=== PATIENT | female | born 1955 | race Two or more races ===

== ENCOUNTER 2019-04-23 08:41 | Inpatient (IN) | payer SELFPAY ==
--- NOTE | 2019-04-23 09:11 | ER Document Report ---
ED General - General Chief Complaint: Altered Mental Status Stated Complaint: HEADACHE Time Seen by Provider: 04/23/19 08:56 Notes: Patient is a 63-year-old female with hypertension, diabetes that presents to the emergency department for chief complaint of headache. Patient's apparently been having a headache for about a week now, got progressively worse last night, she was taking Tylenol and Excedrin, was up late to around 3 AM, and this morning she was crying because her headache got worse, she describes it as all over, she had a few episodes of nausea and vomiting, and overall felt weak. She is been noncompliant with her diabetic medications and her antihypertensive medications since coming into town, she is apparently visiting from out of town. She denies having any chest pain, shortness of breath, difficulty breathing, abdominal pain, dysuria hematuria. According to her daughter she seemed to be a little bit confused this morning as well, she is currently alert and oriented x4 however. Past Medical History: Diabetes, hypertension, rheumatoid arthritis, psoriatic arthritis, migraine headaches Past Surgical History: Denies recent or pertinent surgical history Social History: Denies tobacco, alcohol or drug use. Family History: Reviewed and noncontributory for presenting illness Allergies: Reviewed, see documented allergy list. REVIEW OF SYSTEMS: Other than noted above, the 12 point review of systems was reviewed with the patient and were negative, all pertinent findings are included in the HPI. PHYSICAL EXAMINATION: Vital signs reviewed, nursing noted reviewed. GENERAL: Obese female, no acute distress, appears uncomfortable on exam however. HEAD: Atraumatic, normocephalic. EYES: Eyes appear normal, extraocular movements intact, sclera anicteric, conjunctiva are normal. ENT: nares patent, oropharynx clear without exudates. Moist mucous membranes. NECK: Normal range of motion, supple without lymphadenopathy, no neck stiffness, negative Kernig's and Brudzinski signs. LUNGS: Breath sounds clear to auscultation bilaterally and equal. No wheezes rales or rhonchi. HEART: Regular rate and rhythm without murmurs ABDOMEN: Soft, nontender, normoactive bowel sounds. No rebound, guarding, or ri gidity. No masses appreciated. EXTREMITIES: Bilateral lower extremity pitting edema, equal, 2+, normal range of motion and nontender. NEUROLOGICAL: Alert and oriented x4. No focal neurological deficits. Moves all extremities spontaneously Motor and sensory grossly intact on exam. PSYCH: Appears uncomfortable, answering questions appropriately however. SKIN: Warm, Dry, normal turgor, no rashes or lesions noted on exposed skin TRAVEL OUTSIDE OF THE [place] IN LAST 30 DAYS: No - Related Data Allergies/Adverse Reactions: No Known Allergies Allergy (Verified 04/23/19 08:41) Past Medical History - Social History Smoking Status: Never Smoker Family History: Reviewed & Not Pertinent Physical Exam - Vital signs Vitals: Pulse Ox 100 04/23/19 08:53 Course - Re-evaluation Re-evalutation: Patient seen and examined vital signs reviewed. Laboratory data and imaging were ordered as appropriate for the patient's presenting symptoms and complaint, with consideration of any critical or life threatening conditions that may be associated with their obtained history and exam as noted above. Patient was treated with IV nicardipine, Reglan, and magnesium. Results were reviewed when available and demonstrated hyperglycemia, without acidosis or anion gap, patient was treated with 10 units of IV insulin, she continued to be hypertensive, was increased on the nicardipine, and given a dose of IV metoprolol. Due to the headache, being greater onset than 6 hours, CT was negative, pursued lumbar puncture, which was a traumatic tap, but the red blood cells diluted out in the fourth tube, effectively ruling out subarachnoid hemorrhage. The patient was re-evaluated and was stable, headache was improving, but I did give her a dose of IV morphine to see if it would help more. Evaluation was most consistent with hypertensive encephalopathy, hypertensive emergency, patient was having confusion at home and headache, and markedly elevated blood pressure, requiring IV antihypertensives, I do feel the patient needs to be admitted at this time. Results were discussed with the patient at this point after careful consideration I feel that that patient should be admitted to the hospital. This was discussed with the patient that it is in the best interest for their care to be admitted for further evaluation and management. Patient agreed with this plan of care. A call was placed to the admitting physician, Dr. Crandall and [facility] Villalob[facility], who graciously accepted the patient onto their service. *Note is created using voice recognition software and may contain spelling, synt ax or grammatical errors. Microbiology 04/23/19 11:59 Gram Stain - Preliminary Cerebral Spinal Fluid - Csf Laboratory 07/04/23/19 04/23/19 09:15 09:25 09:25 WBC 9.0 RBC 5.64 H Hgb 16.5 H Hct 50.6 H MCV 90 MCH 29.2 MCHC 32.6 RDW 15.2 H Plt Count 136 L Seg Neutrophils % 89.5 H Lymphocytes % 6.7 L Monocytes % 2.7 L Eosinophils % 0.1 Basophils % 1.0 Absolute Neutrophils 8.0 Absolute Lymphocytes 0.6 Absolute Monocytes 0.2 Absolute Eosinophils 0.0 Absolute Basophils 0.1 PT 12.3 INR 0.91 VBG pH VBG pCO2 VBG HCO3 VBG Base Excess Sodium Potassium Chloride Carbon Dioxide Anion Gap BUN Creatinine Est GFR ( Amer) Est GFR (Non-Af Amer) Glucose Lactic Acid Calcium Total Bilirubin Direct Bilirubin Neonat Total Bilirubin Neonat Direct Bilirubin Neonat Indirect Bili AST ALT Alkaline Phosphatase Troponin I Total Protein Albumin Urine Color YELLOW Urine Appearance SLIGHTLY-CLOUDY Urine pH 8.0 Ur Specific Douglas 1.025 Urine Protein >=500 H Urine Glucose (UA) >=500 H Urine Ketones 20 H Urine Blood SMALL H Urine Nitrite NEGATIVE Urine Bilirubin NEGATIVE Urine Urobilinogen NEGATIVE Ur Leukocyte Esterase TRACE H Urine WBC (Auto) 23 Urine RBC (Auto) 17 Urine Bacteria (Auto) TRACE Squamous Epi Cells Auto 7 U Non-Squamous Epis Auto 3 Urine Mucus (Auto) RARE Urine Ascorbic Acid NEGATIVE Fluid Tube Number CSF Volume CSF WBC CSF RBC CSF Color (1) CSF Appearance (1) CSF Color (2) CSF Appearance (2) CSF Color (3) CSF Appearance (3) CSF Color (4) CSF Appearance (4) CSF Glucose CSF Total Protein 04/23/19 04/23/19 04/23/19 09:25 09:25 10:09 WBC RBC Hgb Hct MCV MCH MCHC RDW Plt Count Seg Neutrophils % Lymphocytes % Monocytes % Eosinophils % Basophils % Absolute Neutrophils Absolute Lymphocytes Absolute Monocytes Absolute Eosinophils Absolute Basophils PT INR VBG pH VBG pCO2 VBG HCO3 VBG Base Excess Sodium 137.3 Potassium 3.4 L Chloride 96 L Carbon Dioxide 28 Anion Gap 13 BUN 16 Creatinine 0.81 Est GFR ( Amer) > 60 Est GFR (Non-Af Amer) > 60 Glucose 502 H* Lactic Acid 1.2 Calcium 9.3 Total Bilirubin 1.1 Direct Bilirubin 0.4 Neonat Total Bilirubin Not Reportable Neonat Direct Bilirubin Not Reportable Neonat Indirect Bili Not Reportable AST 24 ALT 17 Alkaline Phosphatase 111 Troponin I < 0.012 Total Protein 7.9 Albumin 4.1 Urine Color Urine Appearance Urine pH Ur Specific Douglas Urine Protein Urine Glucose (UA) Urine Ketones Urine Blood Urine Nitrite Urine Bilirubin Urine Urobilinogen Ur Leukocyte Esterase Urine WBC (Auto) Urine RBC (Auto) Urine Bacteria (Auto) Squamous Epi Cells Auto U Non-Squamous Epis Auto Urine Mucus (Auto) Urine Ascorbic Acid Fluid Tube Number CSF Volume CSF WBC CSF RBC CSF Color (1) CSF Appearance (1) CSF Color (2) CSF Appearance (2) CSF Color (3) CSF Appearance (3) CSF Color (4) CSF Appearance (4) CSF Glucose CSF Total Protein 04/23/19 04/23/19 04/23/19 10:09 11:59 11:59 WBC RBC Hgb Hct MCV MCH MCHC RDW Plt Count Seg Neutrophils % Lymphocytes % Monocytes % Eosinophils % Basophils % Absolute Neutrophils Absolute Lymphocytes Absolute Monocytes Absolute Eosinophils Absolute Basophils PT INR VBG pH 7.33 VBG pCO2 55.0 VBG HCO3 28.2 VBG Base Excess 0.6 Sodium Potassium Chloride Carbon Dioxide Anion Gap BUN Creatinine Est GFR ( Amer) Est GFR (Non-Af Amer) Glucose Lactic Acid Calcium Total Bilirubin Direct Bilirubin Neonat Total Bilirubin Neonat Direct Bilirubin Neonat Indirect Bili AST ALT Alkaline Phosphatase Troponin I Total Protein Albumin Urine Color Urine Appearance Urine pH Ur Specific Douglas Urine Protein Urine Glucose (UA) Urine Ketones Urine Blood Urine Nitrite Urine Bilirubin Urine Urobilinogen Ur Leukocyte Esterase Urine WBC (Auto) Urine RBC (Auto) Urine Bacteria (Auto) Squamous Epi Cells Auto U Non-Squamous Epis Auto Urine Mucus (Auto) Urine Ascorbic Acid Fluid Tube Number 1 4 CSF Volume 3.8 3.8 CSF WBC 4 0 CSF RBC 2685 H 293 CSF Color (1) PINK PINK CSF Appearance (1) HAZY HAZY CSF Color (2) PINK PINK CSF Appearance (2) CLEAR CLEAR CSF Color (3) COLORLESS COLORLESS CSF Appearance (3) CLEAR CLEAR CSF Color (4) COLORLESS COLORLESS CSF Appearance (4) CLEAR CLEAR CSF Glucose CSF Total Protein 04/23/19 11:59 WBC RBC Hgb Hct MCV MCH MCHC RDW Plt Count Seg Neutrophils % Lymphocytes % Monocytes % Eosinophils % Basophils % Absolute Neutrophils Absolute Lymphocytes Absolute Monocytes Absolute Eosinophils Absolute Basophils PT INR VBG pH VBG pCO2 VBG HCO3 VBG Base Excess Sodium Potassium Chloride Carbon Dioxide Anion Gap BUN Creatinine Est GFR ( Amer) Est GFR (Non-Af Amer) Glucose Lactic Acid Calcium Total Bilirubin Direct Bilirubin Neonat Total Bilirubin Neonat Direct Bilirubin Neonat Indirect Bili AST ALT Alkaline Phosphatase Troponin I Total Protein Albumin Urine Color Urine Appearance Urine pH Ur Specific Douglas Urine Protein Urine Glucose (UA) Urine Ketones Urine Blood Urine Nitrite Urine Bilirubin Urine Urobilinogen Ur Leukocyte Esterase Urine WBC (Auto) Urine RBC (Auto) Urine Bacteria (Auto) Squamous Epi Cells Auto U Non-Squamous Epis Auto Urine Mucus (Auto) Urine Ascorbic Acid Fluid Tube Number CSF Volume CSF WBC CSF RBC CSF Color (1) CSF Appearance (1) CSF Color (2) CSF Appearance (2) CSF Color (3) CSF Appearance (3) CSF Color (4) CSF Appearance (4) CSF Glucose 237 H CSF Total Protein 113 H Chest X-Ray 04/23/19 08:58 IMPRESSION: NO SIGNIFICANT RADIOGRAPHIC FINDING IN THE CHEST. Head CT 04/23/19 08:59 IMPRESSION: NORMAL BRAIN CT WITHOUT CONTRAST. EVIDENCE OF ACUTE STROKE: NO. - Vital Signs Vital signs: Temp Pulse Resp BP Pulse Ox 22 H 202/75 H 88 L 04/23/19 13:06 04/23/19 13:06 04/23/19 13:06 - Laboratory Result Diagrams: 04/23/19 09:25 04/23/19 09:25 Laboratory results interpreted by me: 04/23/19 04/23/19 04/23/19 09:15 09:25 09:25 RBC 5.64 H Hgb 16.5 H Hct 50.6 H RDW 15.2 H Plt Count 136 L Seg Neutrophils % 89.5 H Lymphocytes % 6.7 L Monocytes % 2.7 L Potassium 3.4 L Chloride 96 L Glucose 502 H* Urine Protein >=500 H Urine Glucose (UA) >=500 H Urine Ketones 20 H Urine Blood SMALL H Ur Leukocyte Esterase TRACE H CSF RBC CSF Glucose CSF Total Protein 04/23/19 04/23/19 11:59 11:59 RBC Hgb Hct RDW Plt Count Seg Neutrophils % Lymphocytes % Monocytes % Potassium Chloride Glucose Urine Protein Urine Glucose (UA) Urine Ketones Urine Blood Ur Leukocyte Esterase CSF RBC 2685 H CSF Glucose 237 H CSF Total Protein 113 H - EKG Interpretation by Me Additional EKG results interpreted by me: EKG demonstrates sinus rhythm with a ventricular rate of 92 bpm, normal axis, QTC interpreted as prolonged, at 525 ms, however there is significant baseline artifact, which I believe is artificially elevating the QTC, with manual calculation, her QTC is [address] elevation noted, no prior for comparison. Procedures - Lumbar Puncture Lumbar puncture Consent obtained: Yes Lumbar puncture pre-procedure: Sterile PPE donned, Betadine prep applied, Sterile drapes applied Patient position: Lying - Left Lateral Decubitus Needle size: 22 Lumbar puncture location: L4 Anesthetic type: 1% Lidocaine mL's of anesthetic: 3 Amount/type of drainage: 3.5mL Number of attempts: 2 Complications: No Notes: Suspected traumatic tap, small amount of blood initially, and appeared to dilute out. Critical Care Note - Critical Care Note Total time excluding time spent on procedures (mins): 45 Comments: Critical care time 45 minutes exclusive from separate billable procedures for a patient requiring complex medical decision making, and high potential for cl inical deterioration. In a patient with hypertensive encephalopathy requiring IV antihypertensive medication, close monitoring and repeat evaluations. Time spent obtaining history from patient or surrogate, discussions with consultants, development of treatment plan with patient or surrogate, evaluation of patient's response to treatment, examination of patient, ordering and performing treatments and interventions, ordering and review of laboratory studies, re- evaluation of patient's condition, ordering and review of radiographic studies and review of old charts Discharge - Discharge Clinical Impression: Hypertensive encephalopathy, Hypertensive emergency, Hyperglycemia, Hypokalemia Condition: Serious Disposition: ADMITTED INPATIENT Admitting Provider: Raz (Hospitalist) - Fortunato Villalobos [facility] Unit Admitted: [facility]
[2019-04-23] MEDS ORDERED: NICARDIPINE HCL RTU, ISO-OS 20 MG/200 ML RTUINJ IV PRN (09:24)
--- NOTE | 2019-04-23 09:24 | RADIOLOGY REPORT (SQ) ---
EXAM DESCRIPTION: CT HEAD WITHOUT COMPLETED DATE/TIME: 04/23/2019 9:16 am REASON FOR STUDY: headache, confusion COMPARISON: None. TECHNIQUE: Axial images acquired through the brain without intravenous contrast. Images reviewed wi th bone, brain and subdural windows. Additional sagittal and coronal reconstructions were generated. Images stored on PACS. All CT scanners at this facility use dose modulation, iterative reconstruction, and/or weight based d osing when appropriate to reduce radiation dose to as low as reasonably achievable (ALARA). [facility]: Dose Right [facility]: CareDose [facility]: Dose Right [facility]: Teradose 4D [facility]: Smart [employer] RADIATION DOSE: CT Rad equipment meets quality standard of care and radiation dose reduction techniq ues were employed. CTDIvol: 53.2 mGy. DLP: 911 mGy-cm. mGy. LIMITATIONS: None. FINDINGS: VENTRICLES: Normal size and contour. CEREBRUM: No masses. No hemorrhage. No midline shift. No evidence for acute infarction. Normal gra y/white matter differentiation. No areas of low density in the white matter. CEREBELLUM: No masses. No hemorrhage. No alteration of density. No evidence for acute infarction. EXTRAAXIAL SPACES: No fluid collections. No masses. ORBITS AND GLOBE: No intra- or extraconal masses. Normal contour of globe without masses. CALVARIUM: No fracture. PARANASAL SINUSES: No fluid or mucosal thickening. SOFT TISSUES: No mass or hematoma. OTHER: No other significant finding. IMPRESSION: NORMAL BRAIN CT WITHOUT CONTRAST. EVIDENCE OF ACUTE STROKE: NO. COMMENT: Quality ID # [id number]: Final reports with documentation of one or more dose reduction techniques (e.g., Automated exposure control, adjustment of the mA and/or kV according to patient size, use of iterative reconstruction technique) TECHNICAL DOCUMENTATION: JOB ID: [id number] [employer]- All Rights Reserved Reading location - IP/workstation name: [email or web address]
[2019-04-23] MEDS ORDERED: METOCLOPRAMIDE HCL INJ/PF 10 MG/2 ML SDV IV ONE (09:25)
[2019-04-23 09:52] LABS: ABSOLUTE BASOPHILS # (AUTO) 0.1 10^3/uL (0.0-0.2); ABSOLUTE LYMPHOCYTES (AUTO) 0.6 10^3/uL (0.5-4.7); ABSOLUTE MONOCYTES (AUTO) 0.2 10^3/uL (0.1-1.4); EOSINOPHILS % (AUTO) 0.1 % (0-6); HEMATOCRIT 50.6 % (36.0-47.0); HEMOGLOBIN 16.5 g/dL (12.0-15.5); LYMPHOCYTES % (AUTO) 6.7 % (13-45); MEAN CORPUSCULAR HEMOGLOBIN 29.2 pg (27.0-33.4); MEAN CORPUSCULAR HGB CONC 32.6 g/dL (32.0-36.0); MEAN CORPUSCULAR VOLUME 90 fl (80-97); MONOCYTES % (AUTO) 2.7 % (3-13); PLATELET COUNT 136 10^3/uL (150-450); RED BLOOD COUNT 5.64 10^6/uL (3.72-5.28); RED CELL DISTRIBUTION WIDTH 15.2 % (11.5-14.0); SEGMENTED NEUTROPHILS % (AUTO) 89.5 % (42-78); TOTAL CELLS COUNTED % (AUTO) 100 %
[2019-04-23 09:55] LABS: APPEARANCE,URINE SLIGHTLY-CLOUDY; BILIRUBIN,URINE NEGATIVE (NEGATIVE); COLOR,URINE YELLOW; GLUCOSE, URINE >=500 mg/dL (NEGATIVE); KETONES,URINE 20 mg/dL (NEGATIVE); LEUKOCYTE ESTERASE,URINE TRACE (NEGATIVE); NITRITE,URINE NEGATIVE (NEGATIVE); PROTEIN,URINE >=500 mg/dL (NEGATIVE); URINE SPECIFIC GRAVITY 1.025; UROBILINOGEN,URINE NEGATIVE mg/dL (<2.0)
--- NOTE | 2019-04-23 09:57 | RADIOLOGY REPORT (SQ) ---
EXAM DESCRIPTION: CHEST SINGLE VIEW COMPLETED DATE/TIME: 04/23/2019 9:14 am REASON FOR STUDY: confusion COMPARISON: None. NUMBER OF VIEWS: One view. TECHNIQUE: Single frontal radiographic view of the chest acquired. LIMITATIONS: None. FINDINGS: LUNGS AND PLEURA: No opacities, masses or pneumothorax. No pleural effusion. MEDIASTINUM AND HILAR STRUCTURES: No masses. Contour normal. HEART AND VASCULAR STRUCTURES: Heart normal in size. Normal vasculature. BONES: No acute findings. HARDWARE: None in the chest. OTHER: No other significant finding. IMPRESSION: NO SIGNIFICANT RADIOGRAPHIC FINDING IN THE CHEST. TECHNICAL DOCUMENTATION: JOB ID: [id number] [employer]- All Rights Reserved Reading location - IP/workstation name: [email or web address]
[2019-04-23 09:59] LABS: INTERNATIONAL RATION (INR) 0.91; PROTHROMBIN TIME 12.3 SEC (11.4-15.4)
[2019-04-23 10:08] LABS: ALANINE AMINOTRANSFERASE 17 U/L (9-52); ALBUMIN 4.1 g/dL (3.5-5.0); ALKALINE PHOSPHATASE 111 U/L (38-126); ANION GAP 13 (5-19); ASPARTATE AMINO TRANSFERASE 24 U/L (14-36); BILIRUBIN,DIRECT 0.4 mg/dL (0.0-0.4); BILIRUBIN,TOTAL 1.1 mg/dL (0.2-1.3); BLOOD UREA NITROGEN 16 mg/dL (7-20); CALCIUM 9.3 mg/dL (8.4-10.2); CARBON DIOXIDE 28 mmol/L (22-30); CHLORIDE 96 mmol/L (98-107); POTASSIUM 3.4 mmol/L (3.6-5.0); SODIUM 137.3 mmol/L (137-145); TOTAL PROTEIN 7.9 g/dL (6.3-8.2)
[2019-04-23 10:15] LABS: GLUCOSE 502 mg/dL (75-110)
[2019-04-23] MEDS ORDERED: INSULIN REG, HUMAN 100 UNIT/ML 3 ML VIAL (PYX) IV ONE (10:20)
[2019-04-23 10:26] LABS: VENOUS BLOOD BASE EXCESS 0.6 mmol/L; VENOUS BLOOD HCO3 28.2 mmol/L (20-32); VENOUS BLOOD PH 7.33 (7.30-7.42)
[2019-04-23] MEDS ORDERED: POTASSIUM CHLORIDE 10 MEQ CAPSULE.ER PO ONE ×2 (10:36→14:06)
[2019-04-23] MEDS ORDERED: MAGNESIUM SULFATE/D5W 1 GM/100 ML RTUPB IV ONE (10:39)
[2019-04-23] MEDS ORDERED: LIDOCAINE 1% INJ-PF (10 MG/ML) 30 ML SDV INJ ONE (11:16)
[2019-04-23] MEDS ORDERED: MORPHINE SULFATE 10 MG/ML INJ IV ONE (11:16)
[2019-04-23 12:35] LABS: GLUCOSE,CSF 237 mg/dL (40-70); PROTEIN,CSF 113 mg/dL (12-60)
[2019-04-23] MEDS ORDERED: METOPROLOL TARTRATE PF/INJ 5 MG/5 ML SDV IV ONE (12:49)
[2019-04-23 12:59] LABS: COLOR TUBE 1 PINK; COLOR TUBE 2 PINK; COLOR TUBE 3 COLORLESS; CSF TUBE NUMBER 1
[2019-04-23 13:00] LABS: APPEARANCE TUBE 1 HAZY; APPEARANCE TUBE 2 CLEAR; APPEARANCE TUBE 3 CLEAR; APPEARANCE TUBE 4 CLEAR; COLOR TUBE 4 COLORLESS; CSF TOTAL VOLUME 3.8 CC; RED BLOOD CELL,CSF 2685 /uL (0-10); VOLUME TUBE 4 0.8 CC
[2019-04-23 13:01] LABS: WHITE BLOOD CELL,CSF 4 /uL (0-5)
[2019-04-23 13:17] LABS: APPEARANCE TUBE 1 HAZY; APPEARANCE TUBE 2 CLEAR; APPEARANCE TUBE 3 CLEAR; COLOR TUBE 1 PINK; COLOR TUBE 2 PINK; COLOR TUBE 3 COLORLESS; COLOR TUBE 4 COLORLESS; CSF TUBE NUMBER 4
[2019-04-23 13:18] LABS: APPEARANCE TUBE 4 CLEAR; CSF TOTAL VOLUME 3.8 CC; RED BLOOD CELL,CSF 293 /uL (0-10); VOLUME TUBE 4 0.8 CC
[2019-04-23 13:19] LABS: WHITE BLOOD CELL,CSF 0 /uL (0-5)
[2019-04-23] MEDS ORDERED: DEXTROSE 5%-WATER 250 ML with NITROPRUSSIDE SODIUM 50 MG IV PRN ×2 (13:55)
[2019-04-23] MEDS ORDERED: MAGNESIUM HYDROXIDE SUSP 30 ML UDCUP PO PRN (13:56)
[2019-04-23] MEDS ORDERED: ONDANSETRON HCL INJ/PF 4 MG/2 ML SDV IV PRN (13:56)
[2019-04-23] MEDS ORDERED: GLUCAGON,HUMAN RECOMB 1 MG INJ SUBCUT PRN (13:56)
[2019-04-23] MEDS ORDERED: DEXTROSE 40% GEL 15 GM TUBE PO PRN ×4 (13:56→14:07)
[2019-04-23] MEDS ORDERED: DEXTROSE 50%-WATER 25 GM/50 ML DISP.SYRIN IV PRN ×4 (13:56→14:07)
[2019-04-23] MEDS ORDERED: GLUCAGON,HUMAN RECOMB 1 MG INJ IM PRN (14:07)
--- NOTE | 2019-04-23 14:13 | Progress Note Acknowledgement ---
Progress Note Acknowledgement Progess Note Acknowledgement: I, the undersigned member of the medical staff with appropriate privileges and with supervisory authority over Fortunato Villalobos, a [facility] allied health professional, acknowledge that I have reviewed the progress notes entered on this patient, and in my professional judgment believe that the assessment made and/or any care evidenced was appropriate
--- NOTE | 2019-04-23 14:23 | PDOC H&P ---
History of Present Illness Admission Date/PCP: 04/23/19 13:50 No primary care Patient complains of: Headache, hypertension History of Present Illness: LIZBETH PATTERSON is a 63 year old female who presents to the ER today with hypertensive crisis hyperglycemia and headache. Patient [place] has been out of her blood pressure medicine for several weeks. Yesterday patient started experiencing severe headaches and presented to the ER today. Patient was found to have a blood pressure with a systolic of 202, a glucose of greater than 500 and a severe headache for which she went on a lumbar puncture. Lumbar puncture was normal. Patient was placed on Cardene initially for blood pressure control, and patient was given 10 units of IV regular insulin. She had no other treatment prior to arrival no true aggravating factors. Past Medical History Cardiac Medical History: Reports: Hypertension Endocrine Medical History: Reports: Diabetes Mellitus Type 2 Past Surgical History Past Surgical History: Reports: None Social History Information Source: Patient Lives with: Family Smoking Status: Never Smoker Frequency of Alcohol Use: None Hx Recreational Drug Use: No Hx Prescription Drug Abuse: No - Advance Directive Resuscitation Status: Full Code Family History Family History: DM, Hypertension Parental Family History Reviewed: Yes Children Family History Reviewed: Yes Sibling(s) Family History Reviewed.: Yes Medication/Allergy Allergies/Adverse Reactions: No Known Allergies Allergy (Verified 04/23/19 08:41) Review of Systems Constitutional: PRESENT: headache(s). ABSENT: chills, fever(s), weight gain, weight loss Eyes: ABSENT: visual disturbances Ears: ABSENT: hearing changes Cardiovascular: ABSENT: chest pain, dyspnea on exertion, edema, orthropnea, palpitations Respiratory: ABSENT: cough, hemoptysis Gastrointestinal: ABSENT: abdominal pain, constipation, diarrhea, hematemesis, hematochezia, nausea, vomiting Genitourinary: ABSENT: dysuria, hematuria Musculoskeletal: ABSENT: joint swelling Integumentary: ABSENT: rash, wounds Neurological: ABSENT: abnormal gait, abnormal speech, confusion, dizziness, focal weakness, syncope Psychiatric: ABSENT: anxiety, depression, homidical ideation, suicidal ideation Endocrine: ABSENT: cold intolerance, heat intolerance, polydipsia, polyuria Hematologic/Lymphatic: ABSENT: easy bleeding, easy bruising Physical Exam Vital Signs: Temp Pulse Resp BP Pulse Ox 22 H 202/75 H 88 L 04/23/19 13:06 04/23/19 13:06 04/23/19 13:06 Intake & Output 04/22/19 04/23/19 04/24/19 06:59 06:59 06:59 Intake Total 251 Balance 251 Weight 84.2 kg General appearance: PRESENT: no acute distress, well-developed, well-nourished Head exam: PRESENT: atraumatic, normocephalic Eye exam: PRESENT: conjunctiva pink, EOMI, PERRLA. ABSENT: scleral icterus Neck exam: ABSENT: carotid bruit, JVD, lymphadenopathy, thyromegaly Respiratory exam: PRESENT: clear to auscultation shay. ABSENT: rales, rhonchi, wheezes Cardiovascular exam: PRESENT: RRR. ABSENT: diastolic murmur, rubs, systolic murmur Pulses: PRESENT: normal dorsalis pedis pul Vascular exam: PRESENT: normal capillary refill GI/Abdominal exam: PRESENT: normal bowel sounds, soft. ABSENT: distended, guarding, mass, organolmegaly, rebound, tenderness Rectal exam: PRESENT: deferred Gentrourinary exam: PRESENT: indwelling catheter Extremities exam: PRESENT: full ROM. ABSENT: calf tenderness, clubbing, pedal edema Musculoskeletal exam: PRESENT: full ROM Neurological exam: PRESENT: alert, awake, oriented to person, oriented to place, oriented to time, oriented to situation, CN II-XII grossly intact. ABSENT: motor sensory deficit Psychiatric exam: PRESENT: appropriate affect, normal mood. ABSENT: homicidal ideation, suicidal ideation Skin exam: PRESENT: dry, intact, warm. ABSENT: cyanosis, rash Results Laboratory Results: 04/23/19 09:25 04/23/19 09:25 04/23/19 04/23/19 04/23/19 09:15 09:25 09:25 WBC 9.0 RBC 5.64 H Hgb 16.5 H Hct 50.6 H MCV 90 MCH 29.2 MCHC 32.6 RDW 15.2 H Plt Count 136 L Seg Neutrophils % 89.5 H Lymphocytes % 6.7 L Monocytes % 2.7 L Eosinophils % 0.1 Basophils % 1.0 Absolute Neutrophils 8.0 Absolute Lymphocytes 0.6 Absolute Monocytes 0.2 Absolute Eosinophils 0.0 Absolute Basophils 0.1 VBG pH VBG pCO2 VBG HCO3 VBG Base Excess Sodium 137.3 Potassium 3.4 L Chloride 96 L Carbon Dioxide 28 Anion Gap 13 BUN 16 Creatinine 0.81 Est GFR ( Amer) > 60 Est GFR (Non-Af Amer) > 60 Glucose 502 H* Lactic Acid Calcium 9.3 Total Bilirubin 1.1 AST 24 ALT 17 Alkaline Phosphatase 111 Total Protein 7.9 Albumin 4.1 Urine Color YELLOW Urine Appearance SLIGHTLY-CLOUDY Urine pH 8.0 Ur Specific [place] 1.025 Urine Protein >=500 H Urine Glucose (UA) >=500 H Urine Ketones 20 H Urine Blood SMALL H Urine Nitrite NEGATIVE Ur Leukocyte Esterase TRACE H Urine WBC (Auto) 23 Urine RBC (Auto) 17 Fluid Tube Number CSF Volume CSF WBC CSF RBC CSF Color (1) CSF Appearance (1) CSF Color (2) CSF Appearance (2) CSF Color (3) CSF Appearance (3) CSF Color (4) CSF Appearance (4) CSF Glucose CSF Total Protein 04/23/19 04/23/19 04/23/19 10:09 10:09 11:59 WBC RBC Hgb Hct MCV MCH MCHC RDW Plt Count Seg Neutrophils % Lymphocytes % Monocytes % Eosinophils % Basophils % Absolute Neutrophils Absolute Lymphocytes Absolute Monocytes Absolute Eosinophils Absolute Basophils VBG pH 7.33 VBG pCO2 55.0 VBG HCO3 28.2 VBG Base Excess 0.6 Sodium Potassium Chloride Carbon Dioxide Anion Gap BUN Creatinine Est GFR ( Amer) Est GFR (Non-Af Amer) Glucose Lactic Acid 1.2 Calcium Total Bilirubin AST ALT Alkaline Phosphatase Total Protein Albumin Urine Color Urine Appearance Urine pH Ur Specific [place] Urine Protein Urine Glucose (UA) Urine Ketones Urine Blood Urine Nitrite Ur Leukocyte Esterase Urine WBC (Auto) Urine RBC (Auto) Fluid Tube Number 1 CSF Volume 3.8 CSF WBC 4 CSF RBC 2685 H CSF Color (1) PINK CSF Appearance (1) HAZY CSF Color (2) PINK CSF Appearance (2) CLEAR CSF Color (3) COLORLESS CSF Appearance (3) CLEAR CSF Color (4) COLORLESS CSF Appearance (4) CLEAR CSF Glucose CSF Total Protein 04/23/19 04/23/19 11:59 11:59 WBC RBC Hgb Hct MCV MCH MCHC RDW Plt Count Seg Neutrophils % Lymphocytes % Monocytes % Eosinophils % Basophils % Absolute Neutrophils Absolute Lymphocytes Absolute Monocytes Absolute Eosinophils Absolute Basophils VBG pH VBG pCO2 VBG HCO3 VBG Base Excess Sodium Potassium Chloride Carbon Dioxide Anion Gap BUN Creatinine Est GFR ( Amer) Est GFR (Non-Af Amer) Glucose Lactic Acid Calcium Total Bilirubin AST ALT Alkaline Phosphatase Total Protein Albumin Urine Color Urine Appearance Urine pH Ur Specific [place] Urine Protein Urine Glucose (UA) Urine Ketones Urine Blood Urine Nitrite Ur Leukocyte Esterase Urine WBC (Auto) Urine RBC (Auto) Fluid Tube Number 4 CSF Volume 3.8 CSF WBC 0 CSF RBC 293 CSF Color (1) PINK CSF Appearance (1) HAZY CSF Color (2) PINK CSF Appearance (2) CLEAR CSF Color (3) COLORLESS CSF Appearance (3) CLEAR CSF Color (4) COLORLESS CSF Appearance (4) CLEAR CSF Glucose 237 H CSF Total Protein 113 H 04/23/19 09:25 Troponin I < 0.012 Impressions: Chest X-Ray 04/23/19 08:58 IMPRESSION: NO SIGNIFICANT RADIOGRAPHIC FINDING IN THE CHEST. Head CT 04/23/19 08:59 IMPRESSION: NORMAL BRAIN CT WITHOUT CONTRAST. EVIDENCE OF ACUTE STROKE: NO. Assessment and Plan - Diagnosis (1) Hypertensive emergency Is this a current diagnosis for this admission?: Yes Plan: 04/23/2019-admit to ICU. Nitroprusside drip titration to keep systolic pressure below 160. Will start patient back on her home medications. (2) Hypokalemia Is this a current diagnosis for this admission?: Yes Plan: 2018-20 mEq of p.o. KCl times 1 repeat CMP in a.m. (3) Type 2 diabetes mellitus Qualifiers: Diabetes mellitus complication status: with hyperglycemia Is this a current diagnosis for this admission?: Yes Plan: 04/23/2019-at this time will admit patient to ICU place her on a sliding scale insulin every 2 hours until blood sugars are under control we will then switch her back to her home medications and continue to follow her blood sugars. (4) UTI (urinary tract infection) Qualifiers: Encounter type: initial encounter Is this a current diagnosis for this admission?: Yes Plan: 04/23/2019-patient has leukocyte esterase positive urine. Rocephin 1 g IV daily until cultures return. (5) Polycythemia vera Is this a current diagnosis for this admission?: Yes Plan: 04/23/2019-patient hemoglobin 16.5. This could be due to hemoconcentration. We will hydrate with normal saline 100 L now or overnight repeat CBC in the a.m. - Time Time Spent with patient: 35 or more minutes - Inpatient Certification Based on my medical assessment, after consideration of the patient's comorbidities, presenting symptoms, or acuity I expect that the services needed warrant INPATIENT care.: Yes I certify that my determination is in accordance with my understanding of Medicare's requirements for reasonable and necessary INPATIENT services [42 CFR 412.3e].: Yes Medical Necessity: Other - ICU admission, IV nitroprusside, frequent fingerstick blood sugars.
[2019-04-23] MEDS ORDERED: NITROGLYCERIN 50 MG/D5W 250 ML IV PRN (14:37)
[2019-04-23] MEDS: HYDROMORPHONE HCL INJ/PF 2 MG/ML AMPULE IV PRN (14:43)
[2019-04-23] MEDS: PANTOPRAZOLE SODIUM 40 MG VIAL IV SCH (14:44)
[2019-04-23] MEDS: ENOXAPARIN SODIUM INJ 40 MG/0.4 ML DISP.SYRIN SUBCUT SCH (14:44)
[2019-04-23] MEDS ORDERED: CEFTRIAXONE 1 GM/D5W RTU 1 GM/50 ML RTUPB IV SCH (15:00)
[2019-04-23] MEDS: NORMAL SALINE 1000 ML 1,000 ML IV PRN (15:20)
[2019-04-23] MEDS: INSULIN REG, HUMAN 100 UNIT/ML 3 ML VIAL (PYX) SUBCUT SCH ×2 (17:05→21:01)
--- NOTE | 2019-04-23 19:03 | EKG REPORT ---
SEVERITY:- ABNORMAL ECG - SINUS RHYTHM PROLONGED QT INTERVAL : Confirmed by: Jeane Pope MD 23-Apr-2019 19:01:58
[2019-04-23] MEDS: POTASSIUM CHLORIDE 20 MEQ/50 ML RTU IV SCH ×2 (20:31→22:16)
[2019-04-23] MEDS ORDERED: GLIPIZIDE 5 MG TABLET ONE (21:40)
[2019-04-23] MEDS: ZOLPIDEM TARTRATE 5 MG TABLET PO SCH (22:00)
[2019-04-23] MEDS: GLIPIZIDE XL 5 MG TAB.ER.24 PO SCH (22:00)
[2019-04-23] MEDS: SIMVASTATIN 10 MG TABLET PO SCH (22:00)
[2019-04-24] MEDS: ACETAMINOPHEN 325 MG TABLET PO PRN ×3 (00:45→17:58)
[2019-04-24] MEDS: SIMVASTATIN 10 MG TABLET PO SCH ×2 (00:47→22:30)
[2019-04-24] MEDS: NORMAL SALINE 1000 ML 1,000 ML IV PRN (02:03)
[2019-04-24] MEDS: INSULIN REG, HUMAN 100 UNIT/ML 3 ML VIAL (PYX) SUBCUT SCH ×6 (02:14→22:35)
[2019-04-24 04:03] LABS: ABSOLUTE BASOPHILS # (AUTO) 0.1 10^3/uL (0.0-0.2); ABSOLUTE MONOCYTES (AUTO) 0.6 10^3/uL (0.1-1.4); BASOPHILS % (AUTO) 0.9 % (0-2); EOSINOPHILS % (AUTO) 0.1 % (0-6); HEMATOCRIT 42.9 % (36.0-47.0); LYMPHOCYTES % (AUTO) 11.8 % (13-45); MEAN CORPUSCULAR HEMOGLOBIN 29.2 pg (27.0-33.4); MEAN CORPUSCULAR HGB CONC 32.8 g/dL (32.0-36.0); MEAN CORPUSCULAR VOLUME 89 fl (80-97); MONOCYTES % (AUTO) 7.3 % (3-13); PLATELET COUNT 166 10^3/uL (150-450); RED BLOOD COUNT 4.83 10^6/uL (3.72-5.28); RED CELL DISTRIBUTION WIDTH 15.5 % (11.5-14.0); SEGMENTED NEUTROPHILS % (AUTO) 79.9 % (42-78); TOTAL CELLS COUNTED % (AUTO) 100 %; WHITE BLOOD COUNT 8.8 10^3/uL (4.0-10.5)
[2019-04-24 04:04] LABS: HEMOGLOBIN 14.1 g/dL (12.0-15.5)
[2019-04-24 04:19] LABS: ALANINE AMINOTRANSFERASE 16 U/L (9-52); ALBUMIN 2.8 g/dL (3.5-5.0); ALKALINE PHOSPHATASE 59 U/L (38-126); ANION GAP 5 (5-19); ASPARTATE AMINO TRANSFERASE 14 U/L (14-36); BILIRUBIN,DIRECT 0.2 mg/dL (0.0-0.4); BILIRUBIN,TOTAL 0.6 mg/dL (0.2-1.3); BLOOD UREA NITROGEN 20 mg/dL (7-20); CALCIUM 8.5 mg/dL (8.4-10.2); CARBON DIOXIDE 28 mmol/L (22-30); CHLORIDE 105 mmol/L (98-107); GLUCOSE 258 mg/dL (75-110); PHOSPHORUS 3.5 mg/dL (2.5-4.5); POTASSIUM 4.2 mmol/L (3.6-5.0); SODIUM 137.9 mmol/L (137-145); TOTAL PROTEIN 5.6 g/dL (6.3-8.2)
[2019-04-24] MEDS ORDERED: NORMAL SALINE 1000 ML 1,000 ML IV ONE (04:45)
[2019-04-24] MEDS: LEVOTHYROXINE SODIUM 0.05 MG TABLET PO SCH (06:14)
[2019-04-24] MEDS ORDERED: METFORMIN HCL 500 MG TABLET PO SCH (08:00)
[2019-04-24] MEDS ORDERED: HYDRALAZINE HCL INJ/PF 20 MG/1 ML SDV IV PRN ×2 (08:03→20:29)
--- NOTE | 2019-04-24 08:09 | Progress Note Acknowledgement ---
Progress Note Acknowledgement Progess Note Acknowledgement: I, the undersigned member of the medical staff with appropriate privileges and with supervisory authority over Fortunato Villalobos, a [facility] practice allied health professional, acknowledge that I have reviewed the progress notes entered on this patient, and in my professional judgment believe that the assessment made and/or any care evidenced was appropriate
--- NOTE | 2019-04-24 08:14 | PDOC PROGRESS REPORT ---
Subjective Progress Note for:: 04/24/19 Subjective:: 04/24/2019-no complaints this a.m. Reason For Visit: HYPERTENSIVE CRISIS, HEADACHE Physical Exam Vital Signs: Temp Pulse Resp BP Pulse Ox 98.4 F 55 L 16 152/66 H 98 04/24/19 08:00 04/24/19 08:00 04/24/19 08:00 04/24/19 08:00 04/24/19 08:00 Intake & Output 04/23/19 04/24/19 04/25/19 06:59 06:59 06:59 Intake Total 1587 Output Total 445 25 Balance 1142 -25 Weight 85.8 kg General appearance: PRESENT: no acute distress, well-developed, well-nourished Head exam: PRESENT: atraumatic, normocephalic Eye exam: PRESENT: conjunctiva pink, EOMI, PERRLA. ABSENT: scleral icterus Ear exam: PRESENT: normal external ear exam Mouth exam: PRESENT: moist, tongue midline Neck exam: ABSENT: carotid bruit, JVD, lymphadenopathy, thyromegaly Respiratory exam: PRESENT: clear to auscultation shay. ABSENT: rales, rhonchi, wheezes Cardiovascular exam: PRESENT: RRR. ABSENT: diastolic murmur, rubs, systolic murmur Pulses: PRESENT: normal dorsalis pedis pul Vascular exam: PRESENT: normal capillary refill GI/Abdominal exam: PRESENT: normal bowel sounds, soft. ABSENT: distended, guarding, mass, organolmegaly, rebound, tenderness Rectal exam: PRESENT: deferred Extremities exam: PRESENT: full ROM. ABSENT: calf tenderness, clubbing, pedal edema Neurological exam: PRESENT: alert, awake, oriented to person, oriented to place, oriented to time, oriented to situation, CN II-XII grossly intact. ABSENT: motor sensory deficit Psychiatric exam: PRESENT: appropriate affect, normal mood. ABSENT: homicidal ideation, suicidal ideation Skin exam: PRESENT: dry, intact, warm. ABSENT: cyanosis, rash Results Laboratory Results: 04/24/19 03:45 04/24/19 03:45 04/23/19 04/23/19 04/23/19 09:15 09:25 09:25 WBC 9.0 RBC 5.64 H Hgb 16.5 H Hct 50.6 H MCV 90 MCH 29.2 MCHC 32.6 RDW 15.2 H Plt Count 136 L Seg Neutrophils % 89.5 H Lymphocytes % 6.7 L Monocytes % 2.7 L Eosinophils % 0.1 Basophils % 1.0 Absolute Neutrophils 8.0 Absolute Lymphocytes 0.6 Absolute Monocytes 0.2 Absolute Eosinophils 0.0 Absolute Basophils 0.1 VBG pH VBG pCO2 VBG HCO3 VBG Base Excess Sodium 137.3 Potassium 3.4 L Chloride 96 L Carbon Dioxide 28 Anion Gap 13 BUN 16 Creatinine 0.81 Est GFR ( Amer) > 60 Est GFR (Non-Af Amer) > 60 Glucose 502 H* Lactic Acid Calcium 9.3 Phosphorus Magnesium Total Bilirubin 1.1 AST 24 ALT 17 Alkaline Phosphatase 111 Total Protein 7.9 Albumin 4.1 Urine Color YELLOW Urine Appearance SLIGHTLY-CLOUDY Urine pH 8.0 Ur Specific [place] 1.025 Urine Protein >=500 H Urine Glucose (UA) >=500 H Urine Ketones 20 H Urine Blood SMALL H Urine Nitrite NEGATIVE Ur Leukocyte Esterase TRACE H Urine WBC (Auto) 23 Urine RBC (Auto) 17 Fluid Tube Number CSF Volume CSF WBC CSF RBC CSF Color (1) CSF Appearance (1) CSF Color (2) CSF Appearance (2) CSF Color (3) CSF Appearance (3) CSF Color (4) CSF Appearance (4) CSF Glucose CSF Total Protein 04/23/19 04/23/19 04/23/19 10:09 10:09 11:59 WBC RBC Hgb Hct MCV MCH MCHC RDW Plt Count Seg Neutrophils % Lymphocytes % Monocytes % Eosinophils % Basophils % Absolute Neutrophils Absolute Lymphocytes Absolute Monocytes Absolute Eosinophils Absolute Basophils VBG pH 7.33 VBG pCO2 55.0 VBG HCO3 28.2 VBG Base Excess 0.6 Sodium Potassium Chloride Carbon Dioxide Anion Gap BUN Creatinine Est GFR ( Amer) Est GFR (Non-Af Amer) Glucose Lactic Acid 1.2 Calcium Phosphorus Magnesium Total Bilirubin AST ALT Alkaline Phosphatase Total Protein Albumin Urine Color Urine Appearance Urine pH Ur Specific [place] Urine Protein Urine Glucose (UA) Urine Ketones Urine Blood Urine Nitrite Ur Leukocyte Esterase Urine WBC (Auto) Urine RBC (Auto) Fluid Tube Number 1 CSF Volume 3.8 CSF WBC 4 CSF RBC 2685 H CSF Color (1) PINK CSF Appearance (1) HAZY CSF Color (2) PINK CSF Appearance (2) CLEAR CSF Color (3) COLORLESS CSF Appearance (3) CLEAR CSF Color (4) COLORLESS CSF Appearance (4) CLEAR CSF Glucose CSF Total Protein 04/23/19 04/23/19 04/24/19 11:59 11:59 03:45 WBC 8.8 RBC 4.83 Hgb 14.1 D Hct 42.9 MCV 89 MCH 29.2 MCHC 32.8 RDW 15.5 H Plt Count 166 Seg Neutrophils % 79.9 H Lymphocytes % 11.8 L Monocytes % 7.3 Eosinophils % 0.1 Basophils % 0.9 Absolute Neutrophils 7.0 Absolute Lymphocytes 1.0 Absolute Monocytes 0.6 Absolute Eosinophils 0.0 Absolute Basophils 0.1 VBG pH VBG pCO2 VBG HCO3 VBG Base Excess Sodium Potassium Chloride Carbon Dioxide Anion Gap BUN Creatinine Est GFR ( Amer) Est GFR (Non-Af Amer) Glucose Lactic Acid Calcium Phosphorus Magnesium Total Bilirubin AST ALT Alkaline Phosphatase Total Protein Albumin Urine Color Urine Appearance Urine pH Ur Specific [place] Urine Protein Urine Glucose (UA) Urine Ketones Urine Blood Urine Nitrite Ur Leukocyte Esterase Urine WBC (Auto) Urine RBC (Auto) Fluid Tube Number 4 CSF Volume 3.8 CSF WBC 0 CSF RBC 293 CSF Color (1) PINK CSF Appearance (1) HAZY CSF Color (2) PINK CSF Appearance (2) CLEAR CSF Color (3) COLORLESS CSF Appearance (3) CLEAR CSF Color (4) COLORLESS CSF Appearance (4) CLEAR CSF Glucose 237 H CSF Total Protein 113 H 04/24/19 03:45 WBC RBC Hgb Hct MCV MCH MCHC RDW Plt Count Seg Neutrophils % Lymphocytes % Monocytes % Eosinophils % Basophils % Absolute Neutrophils Absolute Lymphocytes Absolute Monocytes Absolute Eosinophils Absolute Basophils VBG pH VBG pCO2 VBG HCO3 VBG Base Excess Sodium 137.9 Potassium 4.2 Chloride 105 Carbon Dioxide 28 Anion Gap 5 BUN 20 Creatinine 0.96 Est GFR ( Amer) > 60 Est GFR (Non-Af Amer) 59 L Glucose 258 H Lactic Acid Calcium 8.5 Phosphorus 3.5 Magnesium 2.0 Total Bilirubin 0.6 AST 14 ALT 16 Alkaline Phosphatase 59 Total Protein 5.6 L Albumin 2.8 L Urine Color Urine Appearance Urine pH Ur Specific [place] Urine Protein Urine Glucose (UA) Urine Ketones Urine Blood Urine Nitrite Ur Leukocyte Esterase Urine WBC (Auto) Urine RBC (Auto) Fluid Tube Number CSF Volume CSF WBC CSF RBC CSF Color (1) CSF Appearance (1) CSF Color (2) CSF Appearance (2) CSF Color (3) CSF Appearance (3) CSF Color (4) CSF Appearance (4) CSF Glucose CSF Total Protein 04/23/19 09:25 Troponin I < 0.012 Impressions: Chest X-Ray 04/23/19 08:58 IMPRESSION: NO SIGNIFICANT RADIOGRAPHIC FINDING IN THE CHEST. Head CT 04/23/19 08:59 IMPRESSION: NORMAL BRAIN CT WITHOUT CONTRAST. EVIDENCE OF ACUTE STROKE: NO. Assessment and Plan - Diagnosis (1) Hypertensive emergency Is this a current diagnosis for this admission?: Yes Plan: 04/23/2019-admit to ICU. Nitroprusside drip titration to keep systolic pressure below 160. Will start patient back on her home medications. 04/24/2019-resolved at this time. Will transfer patient to IMCU. Continue home medications and nitroglycerin drip as needed. (2) Hypokalemia Is this a current diagnosis for this admission?: Yes Plan: 2018-20 mEq of p.o. KCl times 1 repeat CMP in a.m. 04/24/2019-resolved at this time. Continue to follow daily CMP's. (3) Type 2 diabetes mellitus Qualifiers: Diabetes mellitus complication status: with hyperglycemia Is this a current diagnosis for this admission?: Yes Plan: 04/23/2019-at this time will admit patient to ICU place her on a sliding scale insulin every 2 hours until blood sugars are under control we will then switch her back to her home medications and continue to follow her blood sugars. 04/24/2019-continues to run high at this time. Continue sliding scale insulin as well as patient's home oral medications. Will make change to plan of care as appropriate (4) UTI (urinary tract infection) Qualifiers: Encounter type: initial encounter Is this a current diagnosis for this admission?: Yes Plan: 04/23/2019-patient has leukocyte esterase positive urine. Rocephin 1 g IV daily until cultures return. 04/24/2019-continue IV Rocephin. Await cultures. (5) Polycythemia vera Is this a current diagnosis for this admission?: Yes Plan: 04/23/2019-patient hemoglobin 16.5. This could be due to hemoconcentration. We will hydrate with normal saline 100 L now or overnight repeat CBC in the a.m. 04/24/2019-patient's hemoglobin down to 14 this morning. Most likely this was hemoconcentration in nature. Continue to follow - Time Time Spent with patient: 15-24 minutes - Inpatient Certification Based on my medical assessment, after consideration of the patient's comorbidities, presenting symptoms, or acuity I expect that the services needed warrant INPATIENT care.: Yes I certify that my determination is in accordance with my understanding of Medicare's requirements for reasonable and necessary INPATIENT services [42 CFR 412.3e].: Yes Medical Necessity: Other - Continue continuous monitoring with cardiac care unit nurse and glucose. Continue to hydrate with IV fluids
[2019-04-24] MEDS: CEFTRIAXONE SODIUM 1,000 MG in DEXTROSE 5%-WATER 50 ML IV SCH (09:20)
[2019-04-24] MEDS: ENOXAPARIN SODIUM INJ 40 MG/0.4 ML DISP.SYRIN SUBCUT SCH (09:20)
[2019-04-24] MEDS: PANTOPRAZOLE SODIUM 40 MG VIAL IV SCH (09:20)
[2019-04-24] MEDS: HYDROCHLOROTHIAZIDE 25 MG TABLET PO SCH (09:21)
[2019-04-24] MEDS: FOLIC ACID 1 MG TABLET PO SCH (09:22)
[2019-04-24] MEDS: LOSARTAN POTASSIUM 50 MG TABLET PO SCH (09:22)
[2019-04-24] MEDS: GLIPIZIDE XL 5 MG TAB.ER.24 PO SCH ×2 (09:23→22:31)
[2019-04-24] MEDS: AMLODIPINE BESYLATE 10 MG TABLET PO SCH (09:24)
[2019-04-24] MEDS: GEMFIBROZIL 600 MG TABLET PO SCH (09:24)
[2019-04-24] MEDS: INSULIN GLARGINE,HUM.REC.ANLOG 1,000 UNIT/10 ML VIAL SUBCUT SCH ×2 (10:11→22:35)
[2019-04-24] MEDS: HYDROMORPHONE HCL INJ/PF 2 MG/ML AMPULE IV PRN (19:47)
[2019-04-24] MEDS ORDERED: METOPROLOL TARTRATE PF/INJ 5 MG/5 ML SDV IV ONE (20:28)
[2019-04-24] MEDS ORDERED: PROMETHAZINE HCL INJ 25 MG/1 ML VIAL ONE (20:28)
[2019-04-24] MEDS ORDERED: HYDROMORPHONE HCL INJ/PF 2 MG/ML AMPULE IV PRN (20:30)
[2019-04-24] MEDS ORDERED: PROMETHAZINE HCL INJ 25 MG/1 ML VIAL IV PRN (20:30)
[2019-04-24] MEDS: ZOLPIDEM TARTRATE 5 MG TABLET PO SCH (22:30)
[2019-04-25 03:55] LABS: ABSOLUTE BASOPHILS # (AUTO) 0.1 10^3/uL (0.0-0.2); ABSOLUTE LYMPHOCYTES (AUTO) 1.2 10^3/uL (0.5-4.7); ABSOLUTE MONOCYTES (AUTO) 0.5 10^3/uL (0.1-1.4); ABSOLUTE NEUT (AUTO) 5.6 10^3/uL (1.7-8.2); EOSINOPHILS % (AUTO) 0.4 % (0-6); HEMATOCRIT 43.8 % (36.0-47.0); HEMOGLOBIN 14.1 g/dL (12.0-15.5); LYMPHOCYTES % (AUTO) 15.8 % (13-45); MEAN CORPUSCULAR HGB CONC 32.2 g/dL (32.0-36.0); MEAN CORPUSCULAR VOLUME 90 fl (80-97); MONOCYTES % (AUTO) 6.6 % (3-13); PLATELET COUNT 149 10^3/uL (150-450); RED BLOOD COUNT 4.87 10^6/uL (3.72-5.28); RED CELL DISTRIBUTION WIDTH 15.9 % (11.5-14.0); SEGMENTED NEUTROPHILS % (AUTO) 76.2 % (42-78); TOTAL CELLS COUNTED % (AUTO) 100 %; WHITE BLOOD COUNT 7.4 10^3/uL (4.0-10.5)
[2019-04-25 04:16] LABS: ALANINE AMINOTRANSFERASE 12 U/L (9-52); ALBUMIN 3.1 g/dL (3.5-5.0); ALKALINE PHOSPHATASE 60 U/L (38-126); ANION GAP 5 (5-19); ASPARTATE AMINO TRANSFERASE 15 U/L (14-36); BILIRUBIN,DIRECT 0.2 mg/dL (0.0-0.4); BILIRUBIN,TOTAL 0.4 mg/dL (0.2-1.3); BLOOD UREA NITROGEN 23 mg/dL (7-20); CALCIUM 8.5 mg/dL (8.4-10.2); CARBON DIOXIDE 29 mmol/L (22-30); CHLORIDE 105 mmol/L (98-107); GLUCOSE 272 mg/dL (75-110); PHOSPHORUS 4.1 mg/dL (2.5-4.5); POTASSIUM 4.3 mmol/L (3.6-5.0); SODIUM 138.7 mmol/L (137-145); TOTAL PROTEIN 6.2 g/dL (6.3-8.2)
[2019-04-25] MEDS: ACETAMINOPHEN 325 MG TABLET PO PRN ×3 (04:35→18:11)
[2019-04-25] MEDS: LEVOTHYROXINE SODIUM 0.05 MG TABLET PO SCH (06:34)
[2019-04-25] MEDS: CEFTRIAXONE SODIUM 1,000 MG in DEXTROSE 5%-WATER 50 ML IV SCH (09:50)
[2019-04-25] MEDS: AMLODIPINE BESYLATE 10 MG TABLET PO SCH (09:50)
[2019-04-25] MEDS: FOLIC ACID 1 MG TABLET PO SCH (09:50)
[2019-04-25] MEDS: LOSARTAN POTASSIUM 50 MG TABLET PO SCH (09:50)
[2019-04-25] MEDS: GLIPIZIDE XL 5 MG TAB.ER.24 PO SCH ×2 (09:51→22:02)
[2019-04-25] MEDS: GEMFIBROZIL 600 MG TABLET PO SCH (09:51)
[2019-04-25] MEDS: HYDROCHLOROTHIAZIDE 25 MG TABLET PO SCH (09:51)
[2019-04-25] MEDS: PANTOPRAZOLE SODIUM 40 MG VIAL IV SCH (09:52)
[2019-04-25] MEDS: ENOXAPARIN SODIUM INJ 40 MG/0.4 ML DISP.SYRIN SUBCUT SCH (09:52)
[2019-04-25] MEDS: INSULIN GLARGINE,HUM.REC.ANLOG 1,000 UNIT/10 ML VIAL SUBCUT SCH ×2 (09:52→22:01)
[2019-04-25] MEDS: INSULIN REG, HUMAN 100 UNIT/ML 3 ML VIAL (PYX) SUBCUT SCH ×4 (09:52→22:00)
[2019-04-25] MEDS ORDERED: METOPROLOL SUCCINATE 25 MG TAB.SR.24H PO ONE (13:47)
[2019-04-25] MEDS: METOPROLOL TARTRATE PF/INJ 5 MG/5 ML SDV IV PRN (18:22)
[2019-04-25] MEDS: HYDROMORPHONE HCL 2 MG TABLET PO PRN (20:11)
[2019-04-25] MEDS: SIMVASTATIN 10 MG TABLET PO SCH (22:00)
[2019-04-25] MEDS: ZOLPIDEM TARTRATE 5 MG TABLET PO SCH (22:01)
[2019-04-26] MEDS: METOPROLOL TARTRATE PF/INJ 5 MG/5 ML SDV IV PRN (03:27)
[2019-04-26 03:48] LABS: ABSOLUTE EOSINOPHILS # (AUTO) 0.1 10^3/uL (0.0-0.6); ABSOLUTE LYMPHOCYTES (AUTO) 1.5 10^3/uL (0.5-4.7); ABSOLUTE MONOCYTES (AUTO) 0.5 10^3/uL (0.1-1.4); ABSOLUTE NEUT (AUTO) 4.8 10^3/uL (1.7-8.2); BASOPHILS % (AUTO) 0.7 % (0-2); EOSINOPHILS % (AUTO) 1.7 % (0-6); HEMATOCRIT 42.9 % (36.0-47.0); LYMPHOCYTES % (AUTO) 21.5 % (13-45); MEAN CORPUSCULAR HEMOGLOBIN 29.3 pg (27.0-33.4); MEAN CORPUSCULAR HGB CONC 32.6 g/dL (32.0-36.0); MEAN CORPUSCULAR VOLUME 90 fl (80-97); MONOCYTES % (AUTO) 7.8 % (3-13); PLATELET COUNT 149 10^3/uL (150-450); RED BLOOD COUNT 4.77 10^6/uL (3.72-5.28); RED CELL DISTRIBUTION WIDTH 15.5 % (11.5-14.0); SEGMENTED NEUTROPHILS % (AUTO) 68.3 % (42-78); TOTAL CELLS COUNTED % (AUTO) 100 %; WHITE BLOOD COUNT 7.1 10^3/uL (4.0-10.5)
[2019-04-26] MEDS: HYDROMORPHONE HCL 2 MG TABLET PO PRN (03:50)
[2019-04-26 04:03] LABS: ALANINE AMINOTRANSFERASE 15 U/L (9-52); ALBUMIN 2.9 g/dL (3.5-5.0); ALKALINE PHOSPHATASE 60 U/L (38-126); ASPARTATE AMINO TRANSFERASE 11 U/L (14-36); BILIRUBIN,DIRECT 0.2 mg/dL (0.0-0.4); BILIRUBIN,TOTAL 0.5 mg/dL (0.2-1.3); BLOOD UREA NITROGEN 21 mg/dL (7-20); CHLORIDE 104 mmol/L (98-107); GLUCOSE 174 mg/dL (75-110); PHOSPHORUS 3.9 mg/dL (2.5-4.5); POTASSIUM 3.9 mmol/L (3.6-5.0); TOTAL PROTEIN 5.7 g/dL (6.3-8.2)
[2019-04-26 04:08] LABS: CARBON DIOXIDE 31 mmol/L (22-30); SODIUM 139.2 mmol/L (137-145)
[2019-04-26 04:10] LABS: ANION GAP 4 (5-19)
--- NOTE | 2019-04-26 05:41 | PDOC PROGRESS REPORT ---
Subjective Progress Note for:: 04/25/19 Subjective:: The patient clearly looks uncomfortable. She is complaining of a headache in the occipital area. She states that it is definitely different from the headache she had from her hypertension. It is a constant squeezing feeling. Reason For Visit: HYPERTENSIVE CRISIS, HEADACHE Physical Exam Vital Signs: Temp Pulse Resp BP Pulse Ox 98.4 F 75 17 167/69 H 93 04/25/19 11:00 04/25/19 10:00 04/25/19 11:00 04/25/19 10:43 04/25/19 11:00 Intake & Output 04/24/19 04/25/19 04/26/19 06:59 06:59 06:59 Intake Total 1587 2010 240 Output Total 445 1365 700 Balance 1142 645 -460 Weight 85.8 kg 89.3 kg General appearance: PRESENT: cooperative, mild distress - From headache, well- developed Head exam: PRESENT: atraumatic, normocephalic Eye exam: PRESENT: conjunctiva pink. ABSENT: scleral icterus Ear exam: PRESENT: normal external ear exam Mouth exam: PRESENT: moist, tongue midline Respiratory exam: PRESENT: clear to auscultation shay, symmetrical, unlabored. ABSENT: accessory muscle use, rales, rhonchi, tachypnea, wheezes Cardiovascular exam: PRESENT: RRR, +S1, +S2 GI/Abdominal exam: PRESENT: normal bowel sounds, soft. ABSENT: distended, guarding, tenderness Rectal exam: PRESENT: deferred Gentrourinary exam: PRESENT: indwelling catheter Extremities exam: PRESENT: pedal edema - Trace Musculoskeletal exam: PRESENT: normal inspection Neurological exam: PRESENT: alert, awake, oriented to person, oriented to place, oriented to time, oriented to situation, CN II-XII grossly intact Psychiatric exam: PRESENT: appropriate affect. ABSENT: agitated, anxious Focused psych exam: ABSENT: delusional, restlessness Skin exam: PRESENT: dry, normal color, warm. ABSENT: rash Results Laboratory Results: 04/25/19 03:43 04/25/19 03:43 04/25/19 04/25/19 03:43 03:43 WBC 7.4 RBC 4.87 Hgb 14.1 Hct 43.8 MCV 90 MCH 29.0 MCHC 32.2 RDW 15.9 H Plt Count 149 L Seg Neutrophils % 76.2 Lymphocytes % 15.8 Monocytes % 6.6 Eosinophils % 0.4 Basophils % 1.0 Absolute Neutrophils 5.6 Absolute Lymphocytes 1.2 Absolute Monocytes 0.5 Absolute Eosinophils 0.0 Absolute Basophils 0.1 Sodium 138.7 Potassium 4.3 Chloride 105 Carbon Dioxide 29 Anion Gap 5 BUN 23 H Creatinine 1.27 H Est GFR ( Amer) 52 L Est GFR (Non-Af Amer) 43 L Glucose 272 H Calcium 8.5 Phosphorus 4.1 Magnesium 2.1 Total Bilirubin 0.4 AST 15 ALT 12 Alkaline Phosphatase 60 Total Protein 6.2 L Albumin 3.1 L 04/23/19 16:15 Catheterized Urine Urine Culture - Final Group B Beta Streptococcus Staph Coagulase Negative 04/23/19 09:15 Clean Catch Midstream Urine Culture - Final Group B Beta Streptococcus 04/23/19 09:25 Troponin I < 0.012 Impressions: Chest X-Ray 04/23/19 08:58 IMPRESSION: NO SIGNIFICANT RADIOGRAPHIC FINDING IN THE CHEST. Head CT 04/23/19 08:59 IMPRESSION: NORMAL BRAIN CT WITHOUT CONTRAST. EVIDENCE OF ACUTE STROKE: NO. Assessment and Plan - Diagnosis (1) Hypertensive emergency Is this a current diagnosis for this admission?: Yes Plan: 04/23/2019-admit to ICU. Nitroprusside drip titration to keep systolic pressure below 160. Will start patient back on her home medications. 04/24/2019-resolved at this time. Will transfer patient to IMCU. Continue home medications and nitroglycerin drip as needed. 04/25/2019-the patient's blood pressures are improved but still quite variable. The patient in fact to stop taking her medicines over a month ago. I explained that over time her blood pressure should get back to normal and by forcing them into the normal range too quickly she will likely end up hypotensive. She has responded to intermittent doses of Lopressor and so I will start her on a small dose of long-acting metoprolol. (2) Hypokalemia Is this a current diagnosis for this admission?: Yes Plan: 2018-20 mEq of p.o. KCl times 1 repeat CMP in a.m. 04/24/2019-resolved at this time. Continue to follow daily CMP's. 04/25/2019-the patient's serum potassium remains in the normal range. She is back on hydrochlorothiazide and will monitor her potassium and supplement if nee ded. (3) Type 2 diabetes mellitus Qualifiers: Diabetes mellitus complication status: with hyperglycemia Is this a current diagnosis for this admission?: Yes Plan: 04/23/2019-at this time will admit patient to ICU place her on a sliding scale insulin every 2 hours until blood sugars are under control we will then switch her back to her home medications and continue to follow her blood sugars. 04/24/2019-continues to run high at this time. Continue sliding scale insulin as well as patient's home oral medications. Will make change to plan of care as appropriate 04/25/2019-the patient's glucose readings are still slightly variable. We will continue her metformin and glipizide and adjust Lantus based on the sliding scale requirements. (4) UTI (urinary tract infection) Qualifiers: Encounter type: initial encounter Is this a current diagnosis for this admission?: Yes Plan: 04/23/2019-patient has leukocyte esterase positive urine. Rocephin 1 g IV daily until cultures return. 04/24/2019-continue IV Rocephin. Await cultures. 04/25/2019-final culture results still pending. Continue Rocephin for the time being. (5) Polycythemia vera Is this a current diagnosis for this admission?: Yes Plan: 04/23/2019-patient hemoglobin 16.5. This could be due to hemoconcentration. We will hydrate with normal saline 100 L now or overnight repeat CBC in the a.m. 04/24/2019-patient's hemoglobin down to 14 this morning. Most likely this was hemoconcentration in nature. Continue to follow 04/25/2019-as noted above her hemoglobin now remains normal. We will continue to monitor. Agree with hemoconcentration as the primary etiology. (6) Hypothyroidism Qualifiers: Hypothyroidism type: unspecified Qualified Code(s): E03.9 - Hypothyroidism, unspecified Is this a current diagnosis for this admission?: Yes Plan: 04/25/2019-we will continue the patient's levothyroxine unchanged. (7) Tension headache Is this a current diagnosis for this admission?: Yes Plan: 04/25/2019-after reviewing the symptoms with the patient and his most likely that this is a tension headache from muscle stiffness. She has been in bed for most of her hospitalization. We will try and increase her activity. With her hypertension we will try and avoid anti-inflammatory medications. She does have acetaminophen and narcotic analgesia available. - Time Time Spent with patient: 25-34 minutes Medications reviewed and adjusted accordingly: Yes Anticipated discharge: Home - Plan Summary Plan Summary: Add Toprol 25 mg daily, likely tension headache, add PT
[2019-04-26] MEDS: INSULIN REG, HUMAN 100 UNIT/ML 3 ML VIAL (PYX) SUBCUT SCH ×2 (08:12→10:46)
[2019-04-26] MEDS: ACETAMINOPHEN 325 MG TABLET PO PRN (08:12)
[2019-04-26] MEDS: LEVOTHYROXINE SODIUM 0.05 MG TABLET PO SCH (08:12)
[2019-04-26] MEDS ORDERED: METOPROLOL SUCCINATE 25 MG TAB.SR.24H PO SCH (10:00)
[2019-04-26] MEDS: AMLODIPINE BESYLATE 10 MG TABLET PO SCH (10:44)
[2019-04-26] MEDS: GLIPIZIDE XL 5 MG TAB.ER.24 PO SCH (10:44)
[2019-04-26] MEDS: FOLIC ACID 1 MG TABLET PO SCH (10:45)
[2019-04-26] MEDS: INSULIN GLARGINE,HUM.REC.ANLOG 1,000 UNIT/10 ML VIAL SUBCUT SCH (10:45)
[2019-04-26] MEDS: PANTOPRAZOLE SODIUM 40 MG VIAL IV SCH (10:45)
[2019-04-26] MEDS: GEMFIBROZIL 600 MG TABLET PO SCH (10:45)
[2019-04-26] MEDS: LOSARTAN POTASSIUM 50 MG TABLET PO SCH (10:45)
[2019-04-26] MEDS: HYDROCHLOROTHIAZIDE 25 MG TABLET PO SCH (10:45)
[2019-04-26] MEDS: ENOXAPARIN SODIUM INJ 40 MG/0.4 ML DISP.SYRIN SUBCUT SCH (10:46)
[2019-04-26] MEDS: CEFTRIAXONE SODIUM 1,000 MG in DEXTROSE 5%-WATER 50 ML IV SCH (11:52)
[2019-04-26 15:34] VITALS: BP 166/74
--- NOTE | 2019-04-26 21:36 | PDOC DISCHARGE SUMMARY ---
General - Admit/Disc Date/PCP Admission Date/Primary Care Provider: 04/23/19 13:50 Discharge Date: 04/26/19 - Discharge Diagnosis (1) Hypertensive emergency Is this a current diagnosis for this admission?: Yes Summary: This is a patient who decided to stop taking all of her antihypertensive and diabetic medications about a month ago. She in fact did not run out of her medications but just stopped taking them. On admission she had markedly elevated systolic pressure greater than 200. She was placed on a Cardene drip. I have added back her medications as well as the addition of metoprolol succinate 25 mg daily which she seems to have tolerated well for the last several days. Explained to the patient that her blood pressure will continue to improve over the next week or 2. She has to be diligent about taking her pressure. Her niece will be checking her blood pressure at home as well. We did set up a follow-up appointment with the patient's physician in [place] for when she returns home. (2) Hypokalemia Is this a current diagnosis for this admission?: Yes Summary: The patient's serum potassium was low on admission. This has subsequently corrected. She will follow-up with her primary care physician and repeat blood work in May. (3) Type 2 diabetes mellitus Is this a current diagnosis for this admission?: Yes Summary: The patient stopped taking all of her diabetic medications and her serum glucose was greater than 500 on admission. She was placed on a sliding scale with frequent Accu-Cheks. She was on a diabetic cardiac diet as well. She is now back on her home medications. Her niece understands that for accuracy she needs to check her blood glucose at meals and at bedtime. The patient was on a slidi ng scale at home and she will continue the same. (4) UTI (urinary tract infection) Is this a current diagnosis for this admission?: Yes Summary: The patient had a group B strep infection in the urine along with possible staph coagulase-negative. She had one blood culture that was positive and no other sets and so this will likely be a contaminant. I did place her on ampicillin to complete therapy as an outpatient for the cystitis. (5) Polycythemia vera Is this a current diagnosis for this admission?: Yes Summary: Her polycythemia vera was likely secondary to hemoconcentration. With rehydration her hemoglobin is normalized. (6) Hypothyroidism Is this a current diagnosis for this admission?: Yes Summary: We continued the patient home dose of levothyroxine during her inpatient stay. There was no evidence of acute thyroid issues during her hospitalization. (7) Tension headache Is this a current diagnosis for this admission?: Yes Summary: I will last 2 days the patient has developed what I feel is a tension headache. This is different from the headache she had when she was acutely hypertensive. She does use meloxicam at home and I explained to her that patients with marked hypertension should not use nonsteroidal anti-inflammatory medications. I encouraged her to see her installations inspector when she returns home to discuss potential other medications. - Additional Information Resuscitation Status: Full Code Discharge Diet: Cardiac, Diabetic Discharge Activity: Activity As Tolerated Prescriptions: Ampicillin Trihydrate [Princepen 500 mg Capsule] 1 cap PO QID #40 cap Metoprolol Succinate [Toprol Xl 25 mg Tab.sr] 25 mg PO DAILY 30 Days #30 tab.sr.24h Home Medications: Amlodipine Besylate [Norvasc 10 mg Tablet] 10 mg PO DAILY 04/23/19 Folic Acid [Folvite 1 mg Tablet] 1 mg PO DAILY 04/23/19 Gemfibrozil [Lopid 600 mg Tablet] 600 mg PO DAILY 04/23/19 Glipizide [Glipizide Xl] 10 mg PO Q12 04/23/19 Hydrochlorothiazide [Hydrodiuril 25 mg Tablet] 25 mg PO DAILY 04/23/19 Insulin Lispro [Humalog Insulin (Lispro) 100 unit/mL] 0 unit SUBCUT .SLD SCALE 04/23/19 Levothyroxine Sodium [Synthroid 0.05 mg Tablet] 0.05 mg PO Q6AM 04/23/19 Losartan Potassium [Cozaar 100 mg Tablet] 100 mg PO DAILY 04/23/19 Metformin HCl [Glucophage] 1,000 mg PO BID 04/23/19 Simvastatin [Zocor 20 mg Tablet] 20 mg PO QHS 04/23/19 Acetaminophen [Tylenol 325 mg Tablet] 650 mg PO Q4HP PRN tablet 04/26/19 Ampicillin Trihydrate [Princepen 500 mg Capsule] 1 cap PO QID #40 cap 04/26/19 Metoprolol Succinate [Toprol Xl 25 mg Tab.sr] 25 mg PO DAILY 30 Days #30 tab.sr.24h 04/26/19 History of Present Illness Patient complains of: Headache History of Present Illness: LIZBETH PATTERSON is a 63 year old female with a history of diabetes and hypertension who decided she was not going to take her medications. She has not been taking medicine for at least the last 3 to 4 weeks. She presented to the hospital with systolic pressure greater than 200 and a glucose greater than 500. She had a significant headache as well. A lumbar puncture was performed which was negative. She was placed on a Cardene drip, given insulin and referred to the hospital service for admission. Hospital Course Hospital Course: The patient had an unremarkable hospital course. She was able to be weaned from her Cardene and her previous course of medications were restarted. In addition I added metoprolol 25 mg once daily and this seems to be having good effect. In addition she is back on her diabetes medications. Stressed the importance of consistency as well as diet and the need for Accu-Cheks. Her niece will be monitoring her care between now and when she flies back to [place]. She is well aware of AC and at bedtime Accu-Cheks. As noted above towards in the hospitalization the patient developed tension headache. She normally takes meloxicam for her arthritis. I reviewed the meloxicam and nonsteroidals in general with regard to her underlying hypertension. Hopefully she will make an appointment with her installations inspector at home to explore other treatment modali ties. Physical Exam Vital Signs: Temp Pulse Resp BP Pulse Ox 98.6 F 65 16 166/74 H 94 04/26/19 15:32 04/26/19 15:32 04/26/19 15:32 04/26/19 15:32 04/26/19 15:32 Intake & Output 04/25/19 04/26/19 04/27/19 06:59 06:59 06:59 Intake Total 2009 730 Output Total 1365 2410 200 Balance 645 -1680 -200 Weight 89.3 kg 81.2 kg General appearance: PRESENT: cooperative, mild distress, well-developed Head exam: PRESENT: atraumatic, normocephalic Mouth exam: PRESENT: moist, tongue midline Respiratory exam: PRESENT: clear to auscultation shay, symmetrical, unlabored. ABSENT: rales, rhonchi, tachypnea, wheezes Cardiovascular exam: PRESENT: RRR, +S1, +S2 GI/Abdominal exam: PRESENT: normal bowel sounds, soft. ABSENT: distended, tenderness Rectal exam: PRESENT: deferred Gentrourinary exam: ABSENT: indwelling catheter Extremities exam: ABSENT: pedal edema Musculoskeletal exam: PRESENT: normal inspection Neurological exam: PRESENT: alert, awake, oriented to person, oriented to place, oriented to time, oriented to situation, CN II-XII grossly intact Psychiatric exam: PRESENT: appropriate affect. ABSENT: agitated, anxious Focused psych exam: ABSENT: delusional, restlessness Results Laboratory Results: 04/26/19 03:32 04/26/19 03:32 04/26/19 04/26/19 03:32 03:32 WBC 7.1 RBC 4.77 Hgb 14.0 Hct 42.9 MCV 90 MCH 29.3 MCHC 32.6 RDW 15.5 H Plt Count 149 L Seg Neutrophils % 68.3 Lymphocytes % 21.5 Monocytes % 7.8 Eosinophils % 1.7 Basophils % 0.7 Absolute Neutrophils 4.8 Absolute Lymphocytes 1.5 Absolute Monocytes 0.5 Absolute Eosinophils 0.1 Absolute Basophils 0.0 Sodium 139.2 Potassium 3.9 Chloride 104 Carbon Dioxide 31 H Anion Gap 4 L BUN 21 H Creatinine 0.93 Est GFR ( Amer) > 60 Est GFR (Non-Af Amer) > 60 Glucose 174 H Calcium 9.0 Phosphorus 3.9 Magnesium 2.1 Total Bilirubin 0.5 AST 11 L ALT 15 Alkaline Phosphatase 60 Total Protein 5.7 L Albumin 2.9 L 04/23/19 11:59 Cerebral Spinal Fluid - Csf Gram Stain - Final 04/23/19 11:59 Cerebral Spinal Fluid - Csf CSF Culture - Final NO GROWTH 3 DAYS 04/23/19 16:15 Catheterized Urine Urine Culture - Final Group B Beta Streptococcus Staph Coagulase Negative 04/23/19 09:25 Troponin I < 0.012 Impressions: Chest X-Ray 04/23/19 08:58 IMPRESSION: NO SIGNIFICANT RADIOGRAPHIC FINDING IN THE CHEST. Head CT 04/23/19 08:59 IMPRESSION: NORMAL BRAIN CT WITHOUT CONTRAST. EVIDENCE OF ACUTE STROKE: NO. Qualifiers - * PATIENT BEING DISCHARGED WITH ANY OF THE FOLLOWING DIAGNOSIS: No Acute Heart Failure - Is this a Heart Failure Patient?: No Plan Time Spent: Greater than 30 Minutes
== END 2019-04-26 15:53 | disposition home or self-care (01) | DRG 305 ==
LOC: ER 08:41 → EH 13:50 → ICU 15:26
PROVIDERS: ADMIT Internal Medicine; ATTEND Internal Medicine
PROC: 009U3ZX Drainage of Spinal Canal, Percutaneous Approach, Diagnostic (ICD-10-PCS; principal; 2019-04-23)
DX: I16.1 Hypertensive emergency (principal); N39.0 Urinary tract infection, site not specified; I67.4 Hypertensive encephalopathy; E87.6 Hypokalemia; B95.1 Streptococcus, group B, as the cause of diseases classified elsewhere; D45 Polycythemia vera; E03.9 Hypothyroidism, unspecified; G44.209 Tension-type headache, unspecified, not intractable; E11.65 Type 2 diabetes mellitus with hyperglycemia; I10 Essential (primary) hypertension; M06.9 Rheumatoid arthritis, unspecified; Z91.14 Patient's other noncompliance with medication regimen; Z79.899 Other long term (current) drug therapy; Z79.4 Long term (current) use of insulin; Z79.890 Hormone replacement therapy; Z82.49 Family history of ischemic heart disease and other diseases of the circulatory system; Z83.3 Family history of diabetes mellitus
CPT/HCPCS: 36415; 70450; 71045; 80053; 81001; 82803; 82945; 82962; 83036; 83605; 83735; 84100; 84157; 84484; 85025; 85610; 87040; 87070; 87077; 87086; 87088; 87186; 87205; 89050; 93005; 93010; 96365; 96375; 99291; J0360; J0696; J1170; J1650; J1815; J2270; J2405; J2550; J2765; J3475; J3480; J3490; J7030; J7060; S0164